=== PATIENT | female | born 1995 | race Caucasian/White ===

== ENCOUNTER 2017-05-30 15:37 | Emergency (ER) | payer OTHER ==
[2017-05-30 15:39] VITALS: BP 172/98; PULSE 115; RESP 14; TEMP 98.4; O2SAT 99
[2017-05-30 17:10] LABS: AUTOMATED NEUTROPHIL # 7.9 TH/MM3 (1.8-7.7); BASOPHIL % 0.1 % (0.0-2.0); HEMATOCRIT 36.2 % (35.0-46.0); HEMOGLOBIN 11.8 GM/DL (11.6-15.3); LYMPH % 28.2 % (9.0-44.0); LYMPHOCYTE # 3.7 TH/MM3 (1.0-4.8); MEAN CELL VOLUME 79.3 FL (80.0-100.0); MEAN CORPUSCULAR HEMOGLOBIN 25.9 PG (27.0-34.0); MEAN CORPUSCULAR HGB CONC 32.7 % (32.0-36.0); MEAN PLATELET VOLUME 8.2 FL (7.0-11.0); MONO % 11.1 % (0.0-8.0); MONOCYTE # 1.4 TH/MM3 (0-0.9); NEUT % 60.6 % (16.0-70.0); PLATELET COUNT 454 TH/MM3 (150-450); RED BLOOD COUNT 4.56 MIL/MM3 (4.00-5.30); RED CELL DISTRIBUTION WIDTH 15.7 % (11.6-17.2)
[2017-05-30 17:35] LABS: ALBUMIN 3.3 GM/DL (3.4-5.0); AST (GOT) 25 U/L (16-38); BICARBONATE 25.9 MEQ/L (21.0-32.0); BLOOD UREA NITROGEN 11 MG/DL (7-18); CALCIUM 8.6 MG/DL (8.5-10.1); CHLORIDE 108 MEQ/L (98-107); GLOMERULAR FILTRATION RATE 91 ML/MIN (>89); GLUCOSE,RANDOM 89 MG/DL (74-106); SODIUM (NA) 141 MEQ/L (136-145)
[2017-05-30 17:36] LABS: ALT (GPT) 29 U/L (9-42)
[2017-05-30 17:44] LABS: ALKALINE PHOSPHATASE 104 U/L (45-117); TOTAL BILIRUBIN ADULT 0.2 MG/DL (0.2-1.0)
[2017-05-30 17:45] LABS: ACETAMINOPHEN LESS THAN 2.0 MCG/ML (10.0-30.0)
--- NOTE | 2017-05-30 19:30 | PD ---
HPI Chief Complaint: Psychiatric Symptoms Time Seen by Provider: 19:24 Travel History International Travel<30 days: No Contact w/Intl Traveler<30days: No Traveled to known affect area: No History of Present Illness HPI 22-year-old female presents to the emergency Department voluntarily for psychiatric evaluation. Patient states she smokes crack cocaine and this led her to feel suicidal. She states she has been smoking crack for about 3 years. She states that she started feeling suicidal today with a plan to run in front of traffic. She denies any tenderness point to herself. Patient reports history of psychiatric illness, tachycardia, genital herpes. Patient has no medical complaints at this time. She denies any history of IV drug use. Moderate severity. Patient denies any chance of . PFSH Past Medical History ?: Unknown LMP: 1 month ago Social History Alcohol Use: No Tobacco Use: Yes Substance Use: Yes (cocaine) Review of Systems Except as stated in HPI: all other systems reviewed are Neg Physical Exam Narrative GENERAL: Well-nourished, well-developed obese female patient, afebrile. SKIN: Focused skin assessment warm/dry. HEAD: Normocephalic. Atraumatic. EYES: No scleral icterus. No injection or drainage. NECK: Supple, trachea midline. No JVD or lymphadenopathy. CARDIOVASCULAR: Regular rate and rhythm without murmurs, gallops, or rubs. RESPIRATORY: Breath sounds equal bilaterally. No accessory muscle use. Lungs sounds are clear to auscultation. GASTROINTESTINAL: Abdomen soft, non-tender, nondistended. MUSCULOSKELETAL: No cyanosis, or edema. BACK: Nontender without obvious deformity. No CVA tenderness. PSYCHIATRIC: No delusional thought processes. No hallucinations. Data Data Last Documented VS Vital Signs Date Time Temp Pulse Resp B/P (MAP) Pulse Ox O2 Delivery O2 Flow Rate FiO2 05/30/17 15:39 98.4 115 14 172/98 (122) 99 Orders Orders Complete Blood Count With Diff (05/30/17 16:32) Comprehensive Metabolic Panel (05/30/17 16:32) Psych Screen (05/30/17 16:32) Drug Screen, Random Urine (05/30/17 16:32) Alcohol (Ethanol) (05/30/17 16:32) Salicylates (Aspirin) (05/30/17 16:32) Tylenol (Acetaminophen) (05/30/17 16:32) Labs Laboratory Tests Test 05/30/17 16:47 05/30/17 16:49 White Blood Count 13.0 TH/MM3 Red Blood Count 4.56 MIL/MM3 Hemoglobin 11.8 GM/DL Hematocrit 36.2 % Mean Corpuscular Volume 79.3 FL Mean Corpuscular Hemoglobin 25.9 PG Mean Corpuscular Hemoglobin Concent 32.7 % Red Cell Distribution Width 15.7 % Platelet Count 454 TH/MM3 Mean Platelet Volume 8.2 FL Neutrophils (%) (Auto) 60.6 % Lymphocytes (%) (Auto) 28.2 % Monocytes (%) (Auto) 11.1 % Eosinophils (%) (Auto) 0.0 % Basophils (%) (Auto) 0.1 % Neutrophils # (Auto) 7.9 TH/MM3 Lymphocytes # (Auto) 3.7 TH/MM3 Monocytes # (Auto) 1.4 TH/MM3 Eosinophils # (Auto) 0.0 TH/MM3 Basophils # (Auto) 0.0 TH/MM3 CBC Comment DIFF FINAL Differential Comment Blood Urea Nitrogen 11 MG/DL Creatinine 0.80 MG/DL Random Glucose 89 MG/DL Total Protein 8.0 GM/DL Albumin 3.3 GM/DL Calcium Level 8.6 MG/DL Alkaline Phosphatase 104 U/L Aspartate Amino Transf (AST/SGOT) 25 U/L Alanine Aminotransferase (ALT/SGPT) 29 U/L Total Bilirubin 0.2 MG/DL Sodium Level 141 MEQ/L Potassium Level 3.6 MEQ/L Chloride Level 108 MEQ/L Carbon Dioxide Level 25.9 MEQ/L Anion Gap 7 MEQ/L Estimat Glomerular Filtration Rate 91 ML/MIN Salicylates Level LESS THAN 1.7 MG/DL Acetaminophen Level LESS THAN 2.0 MCG/ML Ethyl Alcohol Level LESS THAN 3 MG/DL Urine Opiates Screen NEG Urine Barbiturates Screen NEG Urine Amphetamines Screen NEG Urine Benzodiazepines Screen NEG Urine Cocaine Screen POS Urine Cannabinoids Screen NEG MDM Medical Decision Making Medical Screen Exam Complete: Yes Emergency Medical Condition: Yes Medical Record Reviewed: Yes Differential Diagnosis Depression versus anxiety versus suicidal ideation versus substance abuse Narrative Course 22-year-old female presents to the emergency Department voluntarily for psychiatric evaluation. She has no medical complaints at this time. CBC shows leukocytosis 13.0, most likely stress reaction. CMP shows no acute abnormality. Urine drug screen is positive for cocaine. Salicylate level is less than 1.7. Tylenol level is less than 2.0. Alcohol level is less than 3. Patient is slightly tachycardic, but she reports history of this. She has not taking her medications. Patient is medically cleared for psychiatric screening and disposition. Mental health screening discussed with the patient. Psychiatric screen ordered. Diagnosis Primary Impression: Depression Qualified Codes: F32.9 - Major depressive disorder, single episode, unspecified Additional Impression: Cocaine abuse Condition: Stable Oralia Espinoza May 30, 2017 19:30
[2017-05-31 02:34] VITALS: BP 131/59; PULSE 106; RESP 22; O2SAT 97
[2017-05-31 09:54] VITALS: BP 109/64; PULSE 111; RESP 18; O2SAT 98
--- NOTE | 2017-05-31 11:22 | PD ---
Physical Exam Date Seen by Provider: May 31, 2017 Time Seen by Provider: 11:20 Narrative 22-year-old female previously medically cleared for psychiatric evaluation voluntarily was evaluated by psychiatric staff and felt to be stable for discharge to rehabilitation facility. Patient remains medically stable at this time. Data Data Last Documented VS Vital Signs Date Time Temp Pulse Resp B/P (MAP) Pulse Ox O2 Delivery O2 Flow Rate FiO2 05/31/17 09:54 111 18 109/64 (79) 98 Room Air 05/30/17 15:39 98.4 Orders Orders Complete Blood Count With Diff (05/30/17 16:32) Comprehensive Metabolic Panel (05/30/17 16:32) Psych Screen (05/30/17 16:32) Drug Screen, Random Urine (05/30/17 16:32) Alcohol (Ethanol) (05/30/17 16:32) Salicylates (Aspirin) (05/30/17 16:32) Tylenol (Acetaminophen) (05/30/17 16:32) Diet Regular Basic (05/31/17 Breakfast) Labs Laboratory Tests Test 05/30/17 16:47 05/30/17 16:49 White Blood Count 13.0 TH/MM3 Red Blood Count 4.56 MIL/MM3 Hemoglobin 11.8 GM/DL Hematocrit 36.2 % Mean Corpuscular Volume 79.3 FL Mean Corpuscular Hemoglobin 25.9 PG Mean Corpuscular Hemoglobin Concent 32.7 % Red Cell Distribution Width 15.7 % Platelet Count 454 TH/MM3 Mean Platelet Volume 8.2 FL Neutrophils (%) (Auto) 60.6 % Lymphocytes (%) (Auto) 28.2 % Monocytes (%) (Auto) 11.1 % Eosinophils (%) (Auto) 0.0 % Basophils (%) (Auto) 0.1 % Neutrophils # (Auto) 7.9 TH/MM3 Lymphocytes # (Auto) 3.7 TH/MM3 Monocytes # (Auto) 1.4 TH/MM3 Eosinophils # (Auto) 0.0 TH/MM3 Basophils # (Auto) 0.0 TH/MM3 CBC Comment DIFF FINAL Differential Comment Blood Urea Nitrogen 11 MG/DL Creatinine 0.80 MG/DL Random Glucose 89 MG/DL Total Protein 8.0 GM/DL Albumin 3.3 GM/DL Calcium Level 8.6 MG/DL Alkaline Phosphatase 104 U/L Aspartate Amino Transf (AST/SGOT) 25 U/L Alanine Aminotransferase (ALT/SGPT) 29 U/L Total Bilirubin 0.2 MG/DL Sodium Level 141 MEQ/L Potassium Level 3.6 MEQ/L Chloride Level 108 MEQ/L Carbon Dioxide Level 25.9 MEQ/L Anion Gap 7 MEQ/L Estimat Glomerular Filtration Rate 91 ML/MIN Salicylates Level LESS THAN 1.7 MG/DL Acetaminophen Level LESS THAN 2.0 MCG/ML Ethyl Alcohol Level LESS THAN 3 MG/DL Urine Opiates Screen NEG Urine Barbiturates Screen NEG Urine Amphetamines Screen NEG Urine Benzodiazepines Screen NEG Urine Cocaine Screen POS Urine Cannabinoids Screen NEG MDM Medical Record Reviewed: Yes Supervised Visit with ANGELIKA: Yes Narrative Course 22-year-old female previously medically cleared for psychiatric evaluation voluntarily was evaluated by psychiatric staff and felt to be stable for discharge to rehabilitation facility. Patient remains medically stable at this time. Diagnosis Primary Impression: Depression Qualified Codes: F32.9 - Major depressive disorder, single episode, unspecified Additional Impression: Cocaine abuse Referrals: [facility] Patient Instructions: General Instructions, Medical Clearance for Substance Abuse Treatment (DC) Med/Other Pt SpecificInfo: No Meds Exist/No RX given Disposition: DISCHARGE HOME Condition: Stable David Trammell May 31, 2017 11:22
[2017-05-31 12:36] VITALS: BP 140/63; PULSE 110; RESP 18; O2SAT 98
--- NOTE | 2017-05-31 13:19 | PD ---
History of Present Illness Chief Complaint: Psychiatric Symptoms Time Seen by Provider: 11:00 Travel History International Travel<30 Days: No Contact w/Intl Traveler<30days: No Known affected area: No History of Present Illness: 22-year-old female with self-admitted history of drug abuse. Wants to go back to rehabilitation. Denies any suicidal or homicidal ideation, plan or intent. She has no psychotic symptoms and no cognitive deficits. She is verbally bindu for safety and she is competent to do so. [facility] Past Medical History Diminished Hearing: No Myocardial Infarction: Yes (D/T CRACK USE) Tetanus Vaccination: Unknown Influenza Vaccination: No ?: Unknown LMP: 1 month ago Past Surgical History Surgical History: No Previous Surgery Psychiatric History Psychiatric History Hx Psychiatric Treatment: Denied History of Inpatient Treatment: No Guns or firearms in home: No Social History Hx Alcohol Use: No Hx Tobacco Use: Yes Hx Substance Use: Yes (COCAINE, CRACK) Hx of Substance Use Treatment: Yes Review of Systems Except as stated in HPI: all other systems reviewed are Neg Mental Status Examination Appearance: Appropriate Consciousness: Alert Orientation: x4 Motor Activity: Normal gait Speech: Unremarkable Language: Adequate Fund of Knowledge: Adequate Attention and Concentration: Adequate Memory: Unremarkable Mood: Appropriate Affect: Appropriate Thought Process & Associations: Intact Thought Content: Appropriate Hallucination Type: None Delusion Type: None Suicidal Ideation: No Suicidal Plan: No Suicidal Intention: No Homicidal Ideation: No Homicidal Plan: No Homicidal Intention: No Insight: Adequate Judgment: Adequate [facility] Medical Decision Making Medical Record Reviewed: Yes Assessment/Plan Patient interviewed at bedside. Electronic medical record reviewed. Case discussed with David, family independence case manager and nurse Bhavya. Patient does not meet criteria for involuntary psychiatric hospitalization. She wants to return to a rehabilitation facility and we are attempting to help her with this. Orders Orders Complete Blood Count With Diff (05/30/17 16:32) Comprehensive Metabolic Panel (05/30/17 16:32) Psych Screen (05/30/17 16:32) Drug Screen, Random Urine (05/30/17 16:32) Alcohol (Ethanol) (05/30/17 16:32) Salicylates (Aspirin) (05/30/17 16:32) Tylenol (Acetaminophen) (05/30/17 16:32) Diet Regular Basic (05/31/17 Breakfast) Ed Discharge Order (05/31/17 11:25) Results Vital Signs Date Time Temp Pulse Resp B/P (MAP) Pulse Ox O2 Delivery O2 Flow Rate FiO2 05/31/17 12:36 110 18 140/63 (88) 98 05/31/17 12:27 05/31/17 09:54 111 18 109/64 (79) 98 Room Air 05/31/17 02:34 106 22 131/59 (83) 97 Room Air 05/30/17 15:39 98.4 115 14 172/98 (122) 99 Laboratory Tests Test 05/30/17 16:47 05/30/17 16:49 White Blood Count 13.0 Red Blood Count 4.56 Hemoglobin 11.8 Hematocrit 36.2 Mean Corpuscular Volume 79.3 Mean Corpuscular Hemoglobin 25.9 Mean Corpuscular Hemoglobin Concent 32.7 Red Cell Distribution Width 15.7 Platelet Count 454 Mean Platelet Volume 8.2 Neutrophils (%) (Auto) 60.6 Lymphocytes (%) (Auto) 28.2 Monocytes (%) (Auto) 11.1 Eosinophils (%) (Auto) 0.0 Basophils (%) (Auto) 0.1 Neutrophils # (Auto) 7.9 Lymphocytes # (Auto) 3.7 Monocytes # (Auto) 1.4 Eosinophils # (Auto) 0.0 Basophils # (Auto) 0.0 CBC Comment DIFF FINAL Differential Comment Blood Urea Nitrogen 11 Creatinine 0.80 Random Glucose 89 Total Protein 8.0 Albumin 3.3 Calcium Level 8.6 Alkaline Phosphatase 104 Aspartate Amino Transf (AST/SGOT) 25 Alanine Aminotransferase (ALT/SGPT) 29 Total Bilirubin 0.2 Sodium Level 141 Potassium Level 3.6 Chloride Level 108 Carbon Dioxide Level 25.9 Anion Gap 7 Estimat Glomerular Filtration Rate 91 Salicylates Level LESS THAN 1.7 Acetaminophen Level LESS THAN 2.0 Ethyl Alcohol Level LESS THAN 3 Urine Opiates Screen NEG Urine Barbiturates Screen NEG Urine Amphetamines Screen NEG Urine Benzodiazepines Screen NEG Urine Cocaine Screen POS Urine Cannabinoids Screen NEG Diagnosis Primary Impression: Cocaine abuse Referrals: [facility] Departure Forms: Tests/Procedures Patient Instructions: General Instructions, Medical Clearance for Substance Abuse Treatment (DC) Disposition: 01 DISCHARGE HOME Condition: Stable Daniel Hernandez MD May 31, 2017 13:19
== END 2017-05-31 12:37 | disposition home or self-care (01) ==
LOC: NEDAMB 15:37 → NEPC 05-31 12:37
DX: F32.9 Major depressive disorder, single episode, unspecified (principal); F14.10 Cocaine abuse, uncomplicated; Z72.0 Tobacco use
CPT/HCPCS: 80053; 80307; 85025; 99284